=== PATIENT | female | born 1930 ===

== ENCOUNTER 2018-09-09 07:57 | Emergency (ER) | payer OTHER ==
[~2018-09-09] VITALS: Ht 172.7 cm; Wt 74.8 kg
[~2018-09-09 07:57] MED LIST: ACYCLOVIR400 MG PO; ATENOLOL-CHLORT1 TA2 PO; DIAMODE2 MG PO; DITROPAN5 MG; PRILOSEC20 MG PO; PROTONIX40 MG PO; ROCEPHIN1 G/VIAL IJ; SYNTHROID50 MCG PO; ZOCOR5 MG
== END 2018-09-09 09:36 | disposition home or self-care (01) ==
LOC: ER 07:57
DX: K94.29 Other complications of gastrostomy (principal)